=== PATIENT | female | born 1990 | race African-American/Black ===

== ENCOUNTER 2017-04-11 07:46 | Emergency (ER) | payer OTHER ==
[~2017-04-11] VITALS: Ht 152.4 cm; Wt 61.2 kg
[2017-04-11 08:34] LABS: BASOPHIL % 0.1 % (0-2); PLATELET COUNT 348 x10^3mcL (130-400); RED CELL DISTRIBUTION WIDTH 12.7 % (11.5-14.5)
[2017-04-11 08:36] LABS: microscopic required? YES; urine erythrocyte 1+ (NEGATIVE)
[2017-04-11 08:57] LABS: CALCIUM 9.4 mg/dL (8.5-10.1); CARBON DIOXIDE 25.8 mmol/L (21-32); CHLORIDE SERUM 104 mmol/L (98-107); GFR1 > 60 mL/min; GLUCOSE SERUM 80 mg/dL (74-106); POTASSIUM SERUM 3.9 mmol/L (3.5-5.1); SODIUM SERUM 139 mmol/L (136-145)
[2017-04-11 09:08] LABS: ALBUMIN 3.9 g/dL (3.4-5.0); ALKALINE PHOSPHATASE 107 U/L (46-116); ALT/SGPT 28 U/L (14-59); AST/SGOT 22 U/L (15-37); BILIRUBIN TOTAL 0.32 mg/dL (0.20-1.00); C REACTIVE PROTEIN 1.4 mg/dL (<=0.9); TOTAL PROTEIN, SERUM 8.7 g/dL (6.4-8.2)
[2017-04-11 09:09] LABS: FREE T4 0.91 ng/dL (0.76-1.46); FREE THYROXINE INDEX 2.5 ug/dL (1.4-4.5); T4(THYROXINE) 7.3 ug/dL (4.7-13.3)
[2017-04-11 09:26] LABS: ERYTHROCYTE SED RATE 28 mm/hr (0-20)
[2017-04-11 09:28] LABS: CK-MB 0.6 ng/mL (0-3.6)
[2017-04-11 12:09] VITALS: BP 110/79
[2017-04-11 15:02] LABS: T3 TOTAL 1.09 ng/mL
== END 2017-04-11 12:09 | disposition left against medical advice (07) ==
LOC: ED 07:46
PROVIDERS: Specialist
DX: L03.221 Cellulitis of neck (principal)
CPT/HCPCS: 83880; 84439; J1885; J2405; J2543; J3010; J3490; J7030; Q0092; Q9967

== ENCOUNTER 2017-04-13 15:35 | Emergency (ER) | payer OTHER ==
[~2017-04-13] VITALS: Ht 152.4 cm; Wt 61.2 kg
[2017-04-13 18:00] VITALS: BP 126/72
== END 2017-04-13 18:19 | disposition home or self-care (01) ==
LOC: ED 15:35
DX: Z48.00 Encounter for change or removal of nonsurgical wound dressing (principal)

== ENCOUNTER 2017-06-03 14:27 | Emergency (ER) | payer OTHER ==
[~2017-06-03] VITALS: Ht 152.4 cm; Wt 61.2 kg
[2017-06-03 14:45] VITALS: BP 126/87
== END 2017-06-03 15:31 | disposition home or self-care (01) ==
LOC: ED 14:27
DX: J06.9 Acute upper respiratory infection, unspecified (principal)

== ENCOUNTER 2017-09-02 20:06 | Emergency (ER) | payer OTHER ==
[~2017-09-02] VITALS: Ht 152.4 cm; Wt 62.1 kg
[2017-09-02 20:38] VITALS: BP 141/80; Ht 152.4 cm; Wt 62.1 kg
== END 2017-09-02 22:40 | disposition home or self-care (01) ==
LOC: ED 20:06
DX: B34.9 Viral infection, unspecified (principal); H92.02 Otalgia, left ear